=== PATIENT | female | born 1960 | race Caucasian/White ===

== ENCOUNTER → 2017-03-18 | Outpatient (CLI) | payer OTHER ==
--- NOTE | 2017-03-18 21:43 | US ---
EXAMINATION TYPE: US carotid duplex BILAT DATE OF EXAM: 03/18/2017 COMPARISON: NONE CLINICAL HISTORY: 57-year-old female I77.1 STENOSIS/BRUIT. Prior coronary artery stents and femoral a rtery stents; prior smoker TECHNIQUE: Carotid duplex ultrasound examination. In direct Doppler criteria was utilized. FINDINGS: Hernández scale images show moderate atherosclerotic changes of the bifurcation. RIGHT: Peak Systolic Velocity (PSV) cm/sec ----- Right CCA: 104.0 ----- Right ICA: 109.5 ----- Right ECA: 152.8 Prox ICA/CCA ratio: 1.1 RIGHT: End Diastole cm/sec ----- Right CCA: 24.8 ----- Right ICA: 18.9 ----- Right ECA: 0.0 LEFT: Peak Systolic Velocity (PSV) cm/sec ----- Left CCA: 65.5 ----- Left ICA: 102.9 ----- Left ECA: 356.9 ICA/CCA ratio: 1.6 LEFT: End Diastole cm/sec ----- Left CCA: 11.7 ----- Left ICA: 17.1 ----- Left ECA: 25.4 VERTEBRALS (direction of flow): Right Vertebral: Antegrade Left Vertebral: Antegrade Rhythm: Normal Incidental finding of left thyroid nodule is imaged. This is solid in the midpole measuring 9 x 9 x 6 mm. IMPRESSION: 1. Moderate atherosclerotic change at the bifurcations. No hemodynamically significant stenosis appre ciated in either internal carotid artery. 2. Narrowing at the proximal ECAs on both sides causing elevated velocities. 3. Incidental 9 mm solid nodule in the left lobe of the thyroid gland. Criteria for Assigning % of Stenosis / Diameter reduction (Estimation based on the indirect measurements of the internal carotid artery velocities (ICA PSV). 1. Normal (no stenosis)=ICA PSV < 125 cm/s: ratio < 2.0: ICA EDV<40 cm/s. 2. Less than 50% stenosis=ICA PSV < 125 cm/s: ratio < 2.0: ICA EDV<40 cm/s. 3. 50 to 69% stenosis=ICA PSV of 125 to 230 cm/s: ration 2.0 ? 4.0: ICA EDV 40-100 cm/s. 4. Greater than 70% stenosis to near occlusion= ICA PSV > 230 cm/s: ratio > 4.0: ICA EDV > 100 cm/s. 5. Near occlusion= ICA PSV velocities may be low or undetectable: variable ratio and ICA EDV. 6. Total occlusion=unable to detect flow.
== END | disposition home or self-care (01) ==
LOC: RADUSWWP 14:50
PROVIDERS: ATTEND Internal Medicine Cardiovascular Disease
DX: I70.90 Unspecified atherosclerosis (principal)
CPT/HCPCS: 93880

== ENCOUNTER → 2017-08-16 | Outpatient (CLI) | payer OTHER ==
[2017-08-16 15:51] LABS: HCT 42.3 % (34.0-46.0); HGB 13.4 gm/dL (11.4-16.0); MCHC 31.7 g/dL (31.0-37.0); MCV 85.1 fL (80.0-100.0); Mean Platelet Volume 7.2; Platelet Count 368 k/uL (150-450); RBC 4.97 m/uL (3.80-5.40); RDW 14.7 % (11.5-15.5); WBC 8.6 k/uL (3.8-10.6)
[2017-08-16 15:52] LABS: Appearance,Urine Clear (Clear); Bilirubin,Urine Negative (Negative); Blood,Urine Negative (Negative); Color,Urine Yellow; Glucose,Urine (UA) Trace (Negative); Ketones,Urine Negative (Negative); Leukocyte Esterase,Urine Negative (Negative); Nitrite,Urine Negative (Negative); Protein,Urine Trace (Negative); Specific Gravity,Urine 1.019 (1.001-1.035); Urobilinogen,Urine <2.0 mg/dL (<2.0)
[2017-08-16 16:01] LABS: ALT 22 U/L (9-52); AST 16 U/L (14-36); Albumin 3.7 g/dL (3.5-5.0); Alkaline Phosphatase 127 U/L (38-126); Anion Gap 13 mmol/L; Bilirubin, Delta 0.3 mg/dL (0.0-0.2); Bilirubin,Unconjugated 0.7 mg/dL (0.0-1.1); Blood Urea Nitrogen 17 mg/dL (7-17); Calcium 9.2 mg/dL (8.4-10.2); Carbon Dioxide 26 mmol/L (22-30); Chloride 102 mmol/L (98-107); Cholesterol 267 mg/dL (<200); Glucose 151 mg/dL (74-99); HDL Cholesterol 49 mg/dL (40-60); LDL Cholesterol,Calculated 156 mg/dL (0-99); Sodium 141 mmol/L (137-145); Total Protein 6.8 g/dL (6.3-8.2); Triglycerides 309 mg/dL (<150)
[2017-08-16 16:05] LABS: Prothrombin Time 9.9 sec (9.0-12.0)
== END | disposition home or self-care (01) ==
LOC: LABWHC1 15:32
PROVIDERS: ATTEND Internal Medicine Cardiovascular Disease
DX: I25.10 Atherosclerotic heart disease of native coronary artery without angina pectoris (principal)
CPT/HCPCS: 36415; 80053; 80061; 81003; 82248; 85027; 85610

== ENCOUNTER 2017-10-05 14:31 | Observation (INO) | payer OTHER ==
[2017-10-05 15:14] LABS: Basophils % (A) 0 %; Eosinophils # (A) 0.2 k/uL (0-0.7); Eosinophils % (A) 3 %; HGB 14.6 gm/dL (11.4-16.0); Lymphocytes # (A) 2.6 k/uL (1.0-4.8); Lymphocytes % (A) 30 %; MCH 27.9 pg (25.0-35.0); MCHC 33.3 g/dL (31.0-37.0); MCV 83.7 fL (80.0-100.0); Mean Platelet Volume 6.4; Monocytes # (A) 0.4 k/uL (0-1.0); Monocytes % (A) 4 %; Neutrophils # (A) 5.3 k/uL (1.3-7.7); Neutrophils % (A) 61 %; Platelet Count 346 k/uL (150-450); RBC 5.26 m/uL (3.80-5.40); RDW 14.8 % (11.5-15.5); WBC 8.7 k/uL (3.8-10.6)
[2017-10-05] MEDS ORDERED: NITROGLYCERIN SL TABS 0.4 MG TAB SUBLINGUAL STA (15:14)
[2017-10-05] MEDS ORDERED: ASPIRIN 81 MG PO STA (15:14)
[2017-10-05] MEDS ORDERED: NITROGLYCERIN OINT 1 INCH/GM PACKET TOPICAL STA (15:14)
--- NOTE | 2017-10-05 15:17 | ED ---
General Adult HPI - General Chief complaint: Chest Pain Stated complaint: Chest Pain Time Seen by Provider: 10/05/17 15:08 Source: patient, family, RN notes reviewed Mode of arrival: wheelchair Limitations: no limitations - History of Present Illness Initial comments: Patient is a pleasant 57-year-old female presenting to the emergency department chest discomfort. Symptoms started a couple of days ago. Symptoms usually are brought on by eating however one time it did not. Patient takes nitroglycerin with improvement of symptoms. Patient had 2 nitroglycerin today with improvement of symptoms however seems to be returning. Discomfort is currently 6/10. Patient does have associated dyspnea and sweating. No nausea. Symptoms are somewhat similar to previous heart attack. Discomfort does radiate up to the neck and left arm. - Related Data Home Medications Medication Instructions Recorded Confirmed Albuterol Sulfate [Ventolin HFA] 2 puff INHALATION RT-Q6H PRN 04/28/14 10/05/17 Atorvastatin [Lipitor] 40 mg PO HS 04/28/14 10/05/17 Clopidogrel [Plavix] 75 mg PO BID 04/28/14 10/05/17 Gabapentin [Neurontin] 600 mg PO TID 04/28/14 10/05/17 Insulin Glargine [Lantus] 76 unit SQ HS 04/28/14 10/05/17 Insulin Glulisine [Apidra] 36 - 40 unit SQ AC-TID 04/28/14 10/05/17 Lisinopril [Zestril] 5 mg PO DAILY 04/28/14 10/05/17 metFORMIN HCL [Glucophage] 500 mg PO BID 04/28/14 10/05/17 Cyclobenzaprine [Flexeril] 10 mg PO TID 06/04/14 10/05/17 Ipratropium-Albuterol Nebulize 3 ml INHALATION RT-TID PRN 06/04/14 10/05/17 [Duoneb 0.5 mg-3 mg/3 ml Soln] Aspirin EC [Ecotrin Low Dose] 81 mg PO DAILY 10/14/15 10/05/17 Cilostazol [Pletal] 100 mg PO BID 10/14/15 10/05/17 Ergocalciferol (Vitamin D2) 50,000 unit PO GRIGSBY 10/14/15 10/05/17 [Drisdol] Isosorbide Mononitrate ER [Imdur] 120 mg PO BID 10/14/15 10/05/17 Metoprolol Tartrate [Lopressor] 25 mg PO BID 10/14/15 10/05/17 Nitroglycerin Sl Tabs [Nitrostat] 0.4 mg SUBLINGUAL Q5M PRN 10/14/15 10/05/17 Ranolazine [Ranexa] 1,000 mg PO BID 10/14/15 10/05/17 Venlafaxine HCl [Effexor XR] 75 mg PO DAILY 10/14/15 10/05/17 lamoTRIgine [LaMICtal] 100 mg PO BID 10/14/15 10/05/17 traMADol HCL [Ultram] 50 mg PO Q4HR PRN 10/14/15 10/05/17 Aclidinium [place] [Tudorza 1 puff INHALATION RT-BID 10/05/17 10/05/17 Pressair] Dulera Unknown Dose 1 puff INHALATION RT-DAILY PRN 10/05/17 10/05/17 Furosemide [Lasix] 20 mg PO DAILY 10/05/17 10/05/17 Levothyroxine Sodium [Synthroid] 175 mcg PO DAILY 10/05/17 10/05/17 Allergies Allergy/AdvReac Type Severity Reaction Status Date / Time cephalexin monohydrate Allergy rash & Verified 10/05/17 16:17 [From Keflex] swelling doxycycline Allergy Rash/Hives Verified 10/05/17 16:17 orange Allergy Rash/Hives Verified 10/05/17 16:17 orange (food color) Allergy Rash/Hives Verified 10/05/17 16:17 orange flavor Allergy Rash/Hives Verified 10/05/17 16:17 orange juice [[place]] Allergy Rash/Hives Verified 10/05/17 16:17 Penicillins Allergy rash & Verified 10/05/17 16:17 swelling Sulfa (Sulfonamide Allergy rash & Verified 10/05/17 16:17 Antibiotics) swelling adhesive AdvReac blisters Verified 10/05/17 16:17 desvenlafaxine succinate AdvReac Altered Verified 10/05/17 16:17 [From Pristiq] Mental Status/aggression diazepam [From Valium] AdvReac Vomiting Verified 10/05/17 16:17 citris Allergy Rash/Hives Uncoded 10/05/17 14:38 Review of Systems ROS Statement: Those systems with pertinent positive or pertinent negative responses have been documented in the HPI. ROS Other: All systems not noted in ROS Statement are negative. Constitutional: Denies: fever Eyes: Denies: eye pain ENT: Denies: ear pain Respiratory: Denies: cough Cardiovascular: Reports: chest pain. Denies: palpitations Gastrointestinal: Denies: abdominal pain, nausea, vomiting Genitourinary: Denies: dysuria Musculoskeletal: Denies: back pain Skin: Denies: rash Neurological: Denies: weakness Past Medical History Past Medical History: Asthma, Coronary Artery Disease (CAD), Diabetes Mellitus, Hyperlipidemia, Hypertension, Myocardial Infarction ([place]), Thyroid Disorder Additional Past Medical History / Comment(s): back pain Last Myocardial Infarction Date:: 2012 History of Any Multi-Drug Resistant Organisms: None Reported Past Surgical History: Appendectomy, Heart Catheterization With Stent, Tonsillectomy, Tubal Ligation Additional Past Surgical History / Comment(s): "bypass from right leg to left" AORTIC BILIARY ANEURYSM REPAIR, Debo filter Past Anesthesia/Blood Transfusion Reactions: Postoperative Nausea & Vomiting ( PONV) Additional Past Anesthesia/Blood Transfusion Reaction / Comment(s): Pt states she takes a long time to wake up after general anesthesia Date of Last Stent Placement:: 2015 Past Psychological History: No Psychological Hx Reported Smoking Status: Former smoker Past Alcohol Use History: None Reported Past Drug Use History: None Reported - Past Family History Father Family Medical History: Unable to Obtain Additional Family Medical History / Comment(s): Pt does not know paternal father "s health hx. Mother Family Medical History: Coronary Artery Disease (CAD), Diabetes Mellitus Additional Family Medical History / Comment(s): Mother had CABG. She is alive and is 75yrs old. General Exam Limitations: no limitations General appearance: alert, in no apparent distress Head exam: Present: atraumatic Eye exam: Present: normal appearance, PERRL ENT exam: Present: normal oropharynx Neck exam: Present: normal inspection Respiratory exam: Present: normal lung sounds bilaterally. Absent: chest wall tenderness Cardiovascular Exam: Present: regular rate, normal rhythm Expanded Peripheral pulses: 2+: Radial (R), Radial (L), Posterior Tibialis (R), Posterior Tibialis (L) GI/Abdominal exam: Present: soft. Absent: tenderness Extremities exam: Present: normal inspection. Absent: pedal edema, calf tenderness Neurological exam: Present: alert Psychiatric exam: Present: normal affect, normal mood Skin exam: Present: normal color Course Vital Signs 10/05/17 14:33 Temperature 98.3 F Pulse Rate 78 Respiratory 20 Rate Blood Pressure 178/79 O2 Sat by Pulse 95 Oximetry EKG Findings - EKG Comments: EKG Findings:: Normal sinus rhythm 87. AL 158. QRS 82. QT 404. QTC 46. Normal axis. Normal QRS. No acute ST change. Medical Decision Making - Medical Decision Making Patient reevaluated and resting comfortably in bed. No change in symptoms. Patient has not yet received nitroglycerin. Patient and family updated on results and plan. Case was discussed in detail with Dr. Vasquez, who will admit for Dr. Adams - Lab Data Result diagrams: 10/05/17 15:07 10/05/17 15:07 Lab Results 10/05/17 10/05/17 10/05/17 Range/Units 14:53 14:53 15:07 WBC 8.7 (3.8-10.6) k/uL RBC 5.26 (3.80-5.40) m/uL Hgb 14.6 (11.4-16.0) gm/dL Hct 44.0 (34.0-46.0) % MCV 83.7 (80.0-100.0) fL MCH 27.9 (25.0-35.0) pg MCHC 33.3 (31.0-37.0) g/dL RDW 14.8 (11.5-15.5) % Plt Count 346 (150-450) k/uL Neutrophils % 61 % Lymphocytes % 30 % Monocytes % 4 % Eosinophils % 3 % Basophils % 0 % Neutrophils # 5.3 (1.3-7.7) k/uL Lymphocytes # 2.6 (1.0-4.8) k/uL Monocytes # 0.4 (0-1.0) k/uL Eosinophils # 0.2 (0-0.7) k/uL Basophils # 0.0 (0-0.2) k/uL PT 9.5 (9.0-12.0) sec INR 1.0 (<1.2) APTT 22.2 (22.0-30.0) sec Sodium (137-145) mmol/L Potassium (3.5-5.1) mmol/L Chloride (98-107) mmol/L Carbon Dioxide (22-30) mmol/L Anion Gap mmol/L BUN (7-17) mg/dL Creatinine (0.52-1.04) mg/dL Est GFR (CKD-EPI)AfAm (>60 ml/min/1.73 sqM) Est GFR (CKD-EPI)NonAf (>60 ml/min/1.73 sqM) Glucose (74-99) mg/dL Calcium (8.4-10.2) mg/dL Magnesium (1.6-2.3) mg/dL Total Bilirubin (0.2-1.3) mg/dL AST (14-36) U/L ALT (9-52) U/L Alkaline Phosphatase (38-126) U/L Total Creatine Kinase 155 H (30-135) U/L CK-MB (CK-2) 0.8 (0.0-2.4) ng/mL CK-MB (CK-2) Rel Index 0.5 Troponin I <0.012 (0.000-0.034) ng/mL Total Protein (6.3-8.2) g/dL Albumin (3.5-5.0) g/dL 10/05/17 Range/Units 15:07 WBC (3.8-10.6) k/uL RBC (3.80-5.40) m/uL Hgb (11.4-16.0) gm/dL Hct (34.0-46.0) % MCV (80.0-100.0) fL MCH (25.0-35.0) pg MCHC (31.0-37.0) g/dL RDW (11.5-15.5) % Plt Count (150-450) k/uL Neutrophils % % Lymphocytes % % Monocytes % % Eosinophils % % Basophils % % Neutrophils # (1.3-7.7) k/uL Lymphocytes # (1.0-4.8) k/uL Monocytes # (0-1.0) k/uL Eosinophils # (0-0.7) k/uL Basophils # (0-0.2) k/uL PT (9.0-12.0) sec INR (<1.2) APTT (22.0-30.0) sec Sodium 139 (137-145) mmol/L Potassium 4.4 (3.5-5.1) mmol/L Chloride 102 (98-107) mmol/L Carbon Dioxide 21 L (22-30) mmol/L Anion Gap 16 mmol/L BUN 15 (7-17) mg/dL Creatinine 0.76 (0.52-1.04) mg/dL Est GFR (CKD-EPI)AfAm >90 (>60 ml/min/1.73 sqM) Est GFR (CKD-EPI)NonAf 88 (>60 ml/min/1.73 sqM) Glucose 297 H (74-99) mg/dL Calcium 9.1 (8.4-10.2) mg/dL Magnesium 1.6 (1.6-2.3) mg/dL Total Bilirubin 1.0 (0.2-1.3) mg/dL AST 20 (14-36) U/L ALT 30 (9-52) U/L Alkaline Phosphatase 126 (38-126) U/L Total Creatine Kinase (30-135) U/L CK-MB (CK-2) (0.0-2.4) ng/mL CK-MB (CK-2) Rel Index Troponin I (0.000-0.034) ng/mL Total Protein 6.9 (6.3-8.2) g/dL Albumin 4.1 (3.5-5.0) g/dL - Radiology Data Radiology results: image reviewed (Chest x-ray shows no acute process) Disposition Clinical Impression: Chest pain Disposition: ADMITTED IP TO THIS HOSP Is patient prescribed a controlled substance at d/c from ED?: No Referrals: Katrina Adams DO [Primary Care Provider] - 1-2 days Decision Time: 16:29
[2017-10-05 15:25] LABS: ALT 30 U/L (9-52); AST 20 U/L (14-36); Albumin 4.1 g/dL (3.5-5.0); Alkaline Phosphatase 126 U/L (38-126); Anion Gap 16 mmol/L; Blood Urea Nitrogen 15 mg/dL (7-17); Calcium 9.1 mg/dL (8.4-10.2); Carbon Dioxide 21 mmol/L (22-30); Chloride 102 mmol/L (98-107); Glucose 297 mg/dL (74-99); Magnesium 1.6 mg/dL (1.6-2.3); Potassium 4.4 mmol/L (3.5-5.1); Sodium 139 mmol/L (137-145); Total Protein 6.9 g/dL (6.3-8.2)
[2017-10-05 15:27] LABS: Creatine Kinase 155 U/L (30-135)
--- NOTE | 2017-10-05 15:30 | XR ---
EXAMINATION TYPE: XR chest 2V DATE OF EXAM: 10/05/2017 COMPARISON: 10/14/2015 HISTORY: Chest pain. History of cardiac disease. TECHNIQUE: Frontal and lateral views of the chest are obtained. FINDINGS: There is no focal air space opacity, pleural effusion, or pneumothorax seen. The cardiac silhouette size is enlarged but similar to the prior. The osseous structures are intact. Mild multi level degenerative changes of the thoracic spine and acromio clavicular arthropathy are noted. IMPRESSION: No acute cardiopulmonary process.
[2017-10-05 15:37] LABS: Creatine Kinase MB 0.8 ng/mL (0.0-2.4)
[2017-10-05 15:41] LABS: Troponin I <0.012 ng/mL (0.000-0.034)
[2017-10-05 15:44] LABS: Partial Thromboplastin Time 22.2 sec (22.0-30.0); Prothrombin Time 9.5 sec (9.0-12.0)
[2017-10-05] MEDS ORDERED: NITROGLYCERIN SL TABS 0.4 MG TAB SUBLINGUAL PRN ×2 (16:29→20:15)
[2017-10-05] MEDS ORDERED: NITROGLYCERIN OINT 1 INCH/GM PACKET TOPICAL SCH (18:00)
[2017-10-05 19:43] VITALS: BMI 49.1
[2017-10-05] MEDS ORDERED: FORMOTEROL INHALATION PRN (20:15)
[2017-10-05] MEDS ORDERED: MOMETASONE INHALATION PRN (20:15)
[2017-10-05] MEDS ORDERED: ALBUTEROL INHALER 60 PUFF/8 GM INHALER INHALATION PRN (20:15)
[2017-10-05] MEDS ORDERED: IPRATROPIUM-ALBUTEROL 3 ML NEB INHALATION PRN (20:15)
[2017-10-05] MEDS ORDERED: traMADol 50 MG TAB PO PRN (20:15)
[2017-10-05] MEDS ORDERED: ATORVASTATIN 40 MG TAB PO SCH (21:00)
[2017-10-05] MEDS: ISOSORBIDE MONONITRATE ER 60 MG TAB.ER.24H PO SCH (21:14)
[2017-10-05] MEDS: CILOSTAZOL 100 MG TAB PO SCH (21:14)
[2017-10-05] MEDS: lamoTRIgine 100 MG TAB PO SCH (21:14)
[2017-10-05] MEDS: RANOLAZINE 500 MG TAB.ER.12H PO SCH (21:15)
[2017-10-05] MEDS: METOPROLOL TARTRATE 25 MG TAB PO SCH (21:15)
[2017-10-05] MEDS: CYCLOBENZAPRINE 10 MG TAB PO SCH (21:16)
[2017-10-05] MEDS: GABAPENTIN 300 MG CAP PO SCH (21:17)
[2017-10-05] MEDS ORDERED: ALBUTEROL NEBULIZED 2.5 MG/3 ML INHALATION PRN (21:20)
[2017-10-05] MEDS: INSULIN DETEMIR 100 UNIT/ML 10 ML VIAL SQ SCH (21:24)
[2017-10-05] MEDS: CLOPIDOGREL 75 MG TAB PO SCH (21:29)
[2017-10-05] MEDS: INSULIN ASPART 100 UNIT/ML 1 ML 10 ML VIAL SQ SCH (21:29)
[2017-10-05 21:33] LABS: Glucose,Whole Blood 200 mg/dL (75-99)
[2017-10-05 21:51] LABS: Creatine Kinase MB 1.7 ng/mL (0.0-2.4)
[2017-10-05 21:54] LABS: Troponin I 0.346 ng/mL (0.000-0.034)
[2017-10-05] MEDS ORDERED: HEPARIN SODIUM,PORCINE 5,000 UNIT/ML 1 ML VIAL IV ONE (21:59)
[2017-10-05] MEDS: HEPARIN SODIUM,PORCINE/D5W PMX 25,000 UNIT in DEXTROSE/WATER 1 500ML.BAG IV SCH (22:47)
[2017-10-06 03:04] LABS: Creatine Kinase MB 2.4 ng/mL (0.0-2.4)
[2017-10-06 03:05] LABS: Troponin I 0.507 ng/mL (0.000-0.034)
[2017-10-06 06:00] LABS: Glucose,Whole Blood 95 mg/dL (75-99)
[2017-10-06 06:06] LABS: Cholesterol 223 mg/dL (<200); HDL Cholesterol 37 mg/dL (40-60); LDL Cholesterol,Calculated 123 mg/dL (0-99); Triglycerides 314 mg/dL (<150)
[2017-10-06] MEDS: INSULIN ASPART 100 UNIT/ML 1 ML 10 ML VIAL SQ SCH ×4 (06:17→22:01)
[2017-10-06] MEDS: LEVOTHYROXINE 100 MCG TAB PO SCH (06:19)
[2017-10-06] MEDS: LEVOTHYROXINE 75 MCG TAB PO SCH (06:19)
[2017-10-06] MEDS ORDERED: NON-FORMULARY DRUG (Aclidinium Bromide [Tudorza Pressair] 1 PUFF) INHALATION SCH (08:00)
[2017-10-06] MEDS: RANOLAZINE 500 MG TAB.ER.12H PO SCH ×2 (08:01→22:00)
[2017-10-06] MEDS: VENLAFAXINE HCL ER 75 MG CAP PO SCH (08:02)
[2017-10-06] MEDS: METOPROLOL TARTRATE 25 MG TAB PO SCH ×2 (08:03→22:00)
[2017-10-06] MEDS: CLOPIDOGREL 75 MG TAB PO SCH (08:03)
[2017-10-06] MEDS: ASPIRIN 81 MG PO SCH (08:04)
[2017-10-06] MEDS: GABAPENTIN 300 MG CAP PO SCH ×3 (08:05→22:00)
[2017-10-06] MEDS: CILOSTAZOL 100 MG TAB PO SCH ×2 (08:05→22:00)
[2017-10-06] MEDS: FUROSEMIDE 20 MG TAB PO SCH (08:05)
[2017-10-06] MEDS: lamoTRIgine 100 MG TAB PO SCH ×2 (08:06→22:00)
[2017-10-06] MEDS: CYCLOBENZAPRINE 10 MG TAB PO SCH ×3 (08:06→22:00)
[2017-10-06] MEDS: ISOSORBIDE MONONITRATE ER 60 MG TAB.ER.24H PO SCH ×2 (08:06→22:00)
[2017-10-06] MEDS: LISINOPRIL 5 MG TAB PO SCH (08:07)
[2017-10-06] MEDS ORDERED: ASPIRIN 325 MG TAB PO SCH (09:00)
[2017-10-06 11:39] LABS: Glucose,Whole Blood 205 mg/dL (75-99)
[2017-10-06] MEDS ORDERED: ERGOCALCIFEROL 50,000 UNIT CAP PO SCH (12:00)
[2017-10-06] MEDS: HEPARIN SODIUM,PORCINE 5,000 UNIT/ML 1 ML VIAL IV PRN ×2 (14:04→22:01)
[2017-10-06] MEDS: HEPARIN SODIUM,PORCINE/D5W PMX 25,000 UNIT in DEXTROSE/WATER 1 500ML.BAG IV SCH (14:21)
--- NOTE | 2017-10-06 15:50 | P.HPIM ---
History of Present Illness H&P Date: 10/06/17 Chief Complaint: Chest pain This is a 57-year-old female with past medical history noted below significant for coronary artery disease with history of stent placement who presented to the emergency room with chest pain. Patient said that she has been having pain that she describes as pressure sensation in the middle of her chest mostly when she eats. Her pain is been on-and-off for several weeks but yesterday got significantly worse. She also noted radiation to her neck and shoulder yesterday which made her more concerned. She denies significant shortness of breath or nausea. She decided to come to the emergency room for further evaluation. Twelve-lead EKG in the emergency room showed no acute ischemic changes. Patient was noted to have an elevated troponin that peaked to 0.5. She was admitted to the hospital on IV heparin drip. She was seen and evaluated by cardiology. Review of Systems Review of system: 14 points review of systems were obtained and were negative except to what were mentioned in the HPI. Past Medical History Past Medical History: Asthma, Coronary Artery Disease (CAD), COPD, Diabetes Mellitus, Hyperlipidemia, Hypertension, Myocardial Infarction ([place]), Thyroid Disorder Additional Past Medical History / Comment(s): back pain Last Myocardial Infarction Date:: 2012 History of Any Multi-Drug Resistant Organisms: None Reported Past Surgical History: Appendectomy, Bariatric Surgery, Heart Catheterization With Stent, Tonsillectomy, Tubal Ligation Additional Past Surgical History / Comment(s): "bypass from right leg to left" x3, AORTIC BILIARY ANEURYSM REPAIR, Debo filter, 4 hernia repairs, gastric bypass sleeve, 8 heart stents total, 3 leg stents, 1 stent in aorta. Past Anesthesia/Blood Transfusion Reactions: Postoperative Nausea & Vomiting ( PONV) Additional Past Anesthesia/Blood Transfusion Reaction / Comment(s): Pt states she takes a long time to wake up after general anesthesia Date of Last Stent Placement:: july 19 2017 Past Psychological History: No Psychological Hx Reported Additional Psychological History / Comment(s): Pt is . She lives alone in her own home and lives around the corner in his own place for financial reasons. Pt is independent. She uses a cane if she needs to walk far. She drives a car. Smoking Status: Former smoker Past Alcohol Use History: None Reported Past Drug Use History: None Reported - Past Family History Father Family Medical History: Unable to Obtain Additional Family Medical History / Comment(s): Pt does not know paternal father "s health hx. Mother Family Medical History: Coronary Artery Disease (CAD), Diabetes Mellitus Additional Family Medical History / Comment(s): Mother had CABG. She is alive and is 75yrs old. Medications and Allergies Home Medications Medication Instructions Recorded Confirmed Type Albuterol Sulfate [Ventolin HFA] 2 puff INHALATION RT-Q6H PRN 04/28/14 10/05/17 History Atorvastatin [Lipitor] 40 mg PO HS 04/28/14 10/05/17 History Clopidogrel [Plavix] 75 mg PO BID 04/28/14 10/05/17 History Gabapentin [Neurontin] 600 mg PO TID 04/28/14 10/05/17 History Insulin Glargine [Lantus] 76 unit SQ HS 04/28/14 10/05/17 History Insulin Glulisine [Apidra] 36 - 40 unit SQ AC-TID 04/28/14 10/05/17 History Lisinopril [Zestril] 5 mg PO DAILY 04/28/14 10/05/17 History metFORMIN HCL [Glucophage] 500 mg PO BID 04/28/14 10/05/17 History Cyclobenzaprine [Flexeril] 10 mg PO TID 06/04/14 10/05/17 History Ipratropium-Albuterol Nebulize 3 ml INHALATION RT-TID PRN 06/04/14 10/05/17 History [Duoneb 0.5 mg-3 mg/3 ml Soln] Aspirin EC [Ecotrin Low Dose] 81 mg PO DAILY 10/14/15 10/05/17 History Cilostazol [Pletal] 100 mg PO BID 10/14/15 10/05/17 History Ergocalciferol (Vitamin D2) 50,000 unit PO GRIGSBY 10/14/15 10/05/17 History [Drisdol] Isosorbide Mononitrate ER [Imdur] 120 mg PO BID 10/14/15 10/05/17 History Metoprolol Tartrate [Lopressor] 25 mg PO BID 10/14/15 10/05/17 History Nitroglycerin Sl Tabs [Nitrostat] 0.4 mg SUBLINGUAL Q5M PRN 10/14/15 10/05/17 History Ranolazine [Ranexa] 1,000 mg PO BID 10/14/15 10/05/17 History Venlafaxine HCl [Effexor XR] 75 mg PO DAILY 10/14/15 10/05/17 History lamoTRIgine [LaMICtal] 100 mg PO BID 10/14/15 10/05/17 History traMADol HCL [Ultram] 50 mg PO Q4HR PRN 10/14/15 10/05/17 History Aclidinium [place] [[place]ud[place]za 1 puff INHALATION RT-BID 10/05/17 10/05/17 History Pressair] Dulera Unknown Dose 1 puff INHALATION RT-DAILY PRN 10/05/17 10/05/17 History Furosemide [Lasix] 20 mg PO DAILY 10/05/17 10/05/17 History Levothyroxine Sodium [Synthroid] 175 mcg PO DAILY 10/05/17 10/05/17 History Allergies Allergy/AdvReac Type Severity Reaction Status Date / Time cephalexin monohydrate Allergy rash & Verified 10/05/17 16:17 [From Keflex] swelling doxycycline Allergy Rash/Hives Verified 10/05/17 16:17 orange Allergy Rash/Hives Verified 10/05/17 16:17 orange (food color) Allergy Rash/Hives Verified 10/05/17 16:17 orange flavor Allergy Rash/Hives Verified 10/05/17 16:17 orange juice [[place]] Allergy Rash/Hives Verified 10/05/17 16:17 Penicillins Allergy rash & Verified 10/05/17 16:17 swelling Sulfa (Sulfonamide Allergy rash & Verified 10/05/17 16:17 Antibiotics) swelling adhesive AdvReac blisters Verified 10/05/17 16:17 desvenlafaxine succinate AdvReac Altered Verified 10/05/17 16:17 [From Pristiq] Mental Status/aggression diazepam [From Valium] AdvReac Vomiting Verified 10/05/17 16:17 citris Allergy Rash/Hives Uncoded 10/05/17 14:38 Physical Exam Vitals: Vital Signs Temp Pulse Pulse Resp BP BP Pulse Ox 10/06/17 15:20 77 18 10/06/17 15:19 97.7 F 77 18 112/59 95 10/06/17 11:18 82 20 10/06/17 11:16 97.5 F L 82 20 116/58 95 10/06/17 08:00 97.5 F L 81 18 132/71 95 10/06/17 03:54 77 16 10/06/17 03:53 97.4 F L 77 16 127/70 96 10/05/17 23:22 75 18 10/05/17 23:20 97.3 F L 75 18 124/76 95 10/05/17 20:00 97.3 F L 89 18 134/65 98 10/05/17 19:15 98.7 F 81 16 150/78 98 10/05/17 17:56 97.3 F L 89 18 134/65 98 10/05/17 17:30 87 16 148/55 97 10/05/17 16:57 91 18 153/69 97 Intake and Output 10/06/17 10/06/17 10/06/17 06:59 14:59 22:59 Intake Total 908.235 6856.424 Balance 020.763 4604.424 Intake: Intake, IV Titration 320.576 279.424 Amount Heparin Sodium,Porcine/ 320.576 279.424 D5w Pmx 25,000 unit In Dextrose/Water 1 500ml. bag @ 20 mls/hr IV .Q[facility]H [facility] Rx#:[id number] Oral 800 Other: Voiding Method Toilet Toilet Toilet # Voids 1 Weight 121.9 kg General: The patient is awake and alert, in no distress Eye: there is normal conjunctiva bilaterally. Neck: The neck is supple, there is no JVD. Cardiovascular: Normal S1-S2, no S3-S4, no murmurs. Respiratory: Lungs clear to auscultation bilaterally Gastrointestinal: Abdomen is obese but soft, nontender Musculoskeletal: There is no pedal edema. Neurological:. Speech is normal. Skin: Skin is warm and dry Results CBC & Chem 7: 10/05/17 15:07 10/05/17 15:07 Labs: Abnormal Lab Results - Last 24 Hours (Table) 10/05/17 10/05/17 10/06/17 Range/Units 20:48 21:23 02:01 POC Glucose (mg/dL) 200 H (75-99) mg/dL Total Creatine Kinase 139 H (30-135) U/L Troponin I 0.346 H* 0.507 H* (0.000-0.034) ng/mL Triglycerides (<150) mg/dL Cholesterol (<200) mg/dL LDL Cholesterol, Calc (0-99) mg/dL HDL Cholesterol (40-60) mg/dL 10/06/17 10/06/17 10/06/17 Range/Units 05:28 09:56 11:37 POC Glucose (mg/dL) 205 H (75-99) mg/dL Total Creatine Kinase (30-135) U/L Troponin I 0.257 H* (0.000-0.034) ng/mL Triglycerides 314 H (<150) mg/dL Cholesterol 223 H (<200) mg/dL LDL Cholesterol, Calc 123 H (0-99) mg/dL HDL Cholesterol 37 L (40-60) mg/dL Thrombosis Risk Factor Assmnt - Choose All That Apply Any of the Below Risk Factors Present?: Yes Each Factor Represents 1 point: Abnormal pulmonary function (COPD), Age 41-60 years Other Risk Factors: No Other congenital or acquired thrombophilia - If yes, enter type in comment: No Thrombosis Risk Factor Assessment Total Risk Factor Score: 2 Thrombosis Risk Factor Assessment Level: Low Risk Assessment and Plan Assessment: 1. Non-ST elevation [place], patient was seen and evaluated by cardiology. Continue IV heparin drip. Medical management for now. Awaiting further recommendations by cardiology 2. Essential hypertension: Blood pressure well-controlled 3. Coronary artery disease with prior stent placement most recently in July 2012. Following in [place] at [facility] 4. Mixed hyperlipidemia cholesterol level not at goal. Lipitor dose was increased to 80 mg at bedtime. 5. Morbid obesity
[2017-10-06 16:36] LABS: Glucose,Whole Blood 162 mg/dL (75-99)
--- NOTE | 2017-10-06 17:50 | CONS ---
CONSULTATION Yasmine Flores is an obese lady with type 2 diabetes mellitus, who has history of previous multivessel PCI. The details of the PCI are not available. She had 1 stenting of LAD performed here in 2016 and since then she has been following up with Dr. Verdugo at [facility]. She came into the hospital yesterday with complaints of having some discomfort in the chest that are going on for the last couple of days. She thought whenever she had a heavy meal she was feeling discomfort but nitroglycerin gave some improvement. After arrival she has no further symptoms. She is feeling comfortable, resting without symptoms. When she came into the hospital she complained of 6/10 chest pain, but that was resolved immediately after nitroglycerin. She is asymptomatic at this time. PAST MEDICAL HISTORY: 1. CAD with multivessel stenting. 2. History of vascular surgery of her lower extremities. 3. Hypertension, hyperlipidemia, type 2 diabetes and thyroid disorder. 4. LABORATORY DATA: Suggests that her troponin was 0.5 when she came in and 0.2 at this time, which is a repeat value. She also has a significantly elevated LDL cholesterol and has not been taking her statin medications. This patient apparently had a previous aorto bi-iliac and fem-fem surgery as well, the details of which are not available. Her home medications include aspirin, atorvastatin, Pletal, Plavix, insulin, levothyroxine, lisinopril, tramadol. ALLERGIES: She is allergic to PENICILLIN AND SULFA. EXAMINATION: Blood pressure is 118/70, pulse rate 78 per minute and regular. HEENT: Unremarkable. Fundus was not examined by me. NECK: Supple. There is no JVD. I do not hear a carotid bruit. Heart exam reveals S1, S2 heard normally with a short systolic murmur. Lungs revealed decent air entry. Abdomen is soft, nontender. Lower extremities reveal diminished pulses. Central nervous system is normal. EKG revealed sinus mechanism with minor nonspecific ST-T changes. IMPRESSION: 1. Non ST elevation CT in a patient with multivessel PCI without any chest pain at this time. 2. History of multivessel PCI, details unclear. 3. Diabetes mellitus type 2. 4. Hypertension. 5. Hyperlipidemia. 6. Obesity. RECOMMENDATIONS: I am advising cardiac catheterization but patient is at this time reluctant to have a cardiac cath performed. She wishes to go to [facility] for her procedures and wishes to see Dr. Verdugo as an outpatient for procedures. I explained to her that if she has any further chest discomfort while she is here, we would recommend cardiac cath and if necessary transfer her but if she has no further chest discomfort, if she remains stable, I will discharge her and have her see Dr. Leon Verdugo at [facility] early next week. Advised to let us know if she has symptoms. We will continue IV heparin for now and resume almost all her medications including atorvastatin which I will increase to 80 mg daily. Thank you very much for the consult. LYNSEY / MAUREEN: [id number] /
[2017-10-06 20:48] VITALS: RESP 16
[2017-10-06] MEDS ORDERED: ATORVASTATIN 80 MG TAB PO SCH (21:00)
[2017-10-06 21:13] LABS: Glucose,Whole Blood 239 mg/dL (75-99)
[2017-10-06] MEDS: INSULIN DETEMIR 100 UNIT/ML 10 ML VIAL SQ SCH (22:00)
[2017-10-07 03:43] LABS: Basophils % (A) 0 %; Eosinophils # (A) 0.3 k/uL (0-0.7); Eosinophils % (A) 5 %; HCT 38.9 % (34.0-46.0); HGB 12.4 gm/dL (11.4-16.0); Lymphocytes # (A) 3.3 k/uL (1.0-4.8); Lymphocytes % (A) 46 %; MCH 27.2 pg (25.0-35.0); MCHC 31.8 g/dL (31.0-37.0); MCV 85.3 fL (80.0-100.0); Mean Platelet Volume 6.6; Monocytes # (A) 0.3 k/uL (0-1.0); Monocytes % (A) 4 %; Neutrophils # (A) 3.1 k/uL (1.3-7.7); Neutrophils % (A) 44 %; Platelet Count 288 k/uL (150-450); RBC 4.56 m/uL (3.80-5.40); RDW 15.1 % (11.5-15.5); WBC 7.1 k/uL (3.8-10.6)
[2017-10-07] MEDS: HEPARIN SODIUM,PORCINE/D5W PMX 25,000 UNIT in DEXTROSE/WATER 1 500ML.BAG IV SCH (03:58)
[2017-10-07 04:17] LABS: Anion Gap 13 mmol/L; Blood Urea Nitrogen 15 mg/dL (7-17); Carbon Dioxide 22 mmol/L (22-30); Chloride 106 mmol/L (98-107); Glucose 157 mg/dL (74-99); Potassium 4.2 mmol/L (3.5-5.1); Sodium 141 mmol/L (137-145)
[2017-10-07 06:14] LABS: Glucose,Whole Blood 177 mg/dL (75-99)
[2017-10-07] MEDS ORDERED: INSULIN DETEMIR 100 UNIT/ML 10 ML VIAL SQ SCH (06:17)
[2017-10-07] MEDS: LEVOTHYROXINE 75 MCG TAB PO SCH (06:28)
[2017-10-07] MEDS: LEVOTHYROXINE 100 MCG TAB PO SCH (06:28)
[2017-10-07] MEDS: INSULIN ASPART 100 UNIT/ML 1 ML 10 ML VIAL SQ SCH ×2 (06:31→12:03)
[2017-10-07] MEDS ORDERED: CLOPIDOGREL 75 MG TAB PO SCH (09:00)
[2017-10-07] MEDS: GABAPENTIN 300 MG CAP PO SCH (09:46)
[2017-10-07] MEDS: ISOSORBIDE MONONITRATE ER 60 MG TAB.ER.24H PO SCH (09:46)
[2017-10-07] MEDS: FUROSEMIDE 20 MG TAB PO SCH (09:46)
[2017-10-07] MEDS: ASPIRIN 81 MG PO SCH (09:46)
[2017-10-07] MEDS: CILOSTAZOL 100 MG TAB PO SCH (09:48)
[2017-10-07] MEDS: CYCLOBENZAPRINE 10 MG TAB PO SCH (09:48)
[2017-10-07] MEDS: lamoTRIgine 100 MG TAB PO SCH (09:49)
[2017-10-07] MEDS: RANOLAZINE 500 MG TAB.ER.12H PO SCH (09:50)
[2017-10-07] MEDS: METOPROLOL TARTRATE 25 MG TAB PO SCH (09:51)
[2017-10-07] MEDS: VENLAFAXINE HCL ER 75 MG CAP PO SCH (09:51)
[2017-10-07 11:38] VITALS: BP 130/65; PULSE 78; TEMP 97
[2017-10-07] MEDS: LISINOPRIL 5 MG TAB PO SCH (11:39)
[2017-10-07 11:51] LABS: Glucose,Whole Blood 199 mg/dL (75-99)
--- NOTE | 2017-10-07 14:57 | P.DS ---
Providers Date of admission: 10/05/17 16:29 Expected date of discharge: 10/07/17 Attending physician: Chayo Grider Consults: 10/05/17 16:29 Consult Physician Urgent Consulting Provider: Alyssia Hawthorne Consult Reason/Comments: chest pain Do you want consulting provider notified?: Yes Primary care physician: [facility] Course: 1. Non-ST elevation SD, patient was seen and evaluated by cardiology. Treated medically with IV heparin. No further chest pain. 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 Continue optimal medical management. 2. Essential hypertension: Blood pressure well-controlled 3. Coronary artery disease with prior stent placement most recently in July 2012. Following in [place] at [facility] 4. Mixed hyperlipidemia cholesterol level not at goal. Lipitor dose was increased to 80 mg at bedtime. 5. Morbid obesity Plan - Discharge Summary Discharge Rx Participant: No New Discharge Prescriptions: New Atorvastatin [Lipitor] 80 mg PO HS tab Continue Insulin Glulisine [Apidra] 36 - 40 unit SQ AC-TID Insulin Glargine [Lantus] 76 unit SQ HS Lisinopril [Zestril] 5 mg PO DAILY Albuterol Sulfate [Ventolin HFA] 2 puff INHALATION RT-Q6H PRN PRN Reason: Shortness Of Breath metFORMIN HCL [Glucophage] 500 mg PO BID Gabapentin [Neurontin] 600 mg PO TID Cyclobenzaprine [Flexeril] 10 mg PO TID Ipratropium-Albuterol Nebulize [Duoneb 0.5 mg-3 mg/3 ml Soln] 3 ml INHALATION RT-TID PRN PRN Reason: shortness of breath or wheeze Aspirin EC [Ecotrin Low Dose] 81 mg PO DAILY Cilostazol [Pletal] 100 mg PO BID lamoTRIgine [LaMICtal] 100 mg PO BID Metoprolol Tartrate [Lopressor] 25 mg PO BID Ranolazine [Ranexa] 1,000 mg PO BID Venlafaxine HCl [Effexor XR] 75 mg PO DAILY Ergocalciferol (Vitamin D2) [Drisdol] 50,000 unit PO GRIGSBY Nitroglycerin Sl Tabs [Nitrostat] 0.4 mg SUBLINGUAL Q5M PRN PRN Reason: Chest Pain traMADol HCL [Ultram] 50 mg PO Q4HR PRN PRN Reason: Pain Isosorbide Mononitrate ER [Imdur] 120 mg PO BID Levothyroxine Sodium [Synthroid] 175 mcg PO DAILY Furosemide [Lasix] 20 mg PO DAILY Aclidinium [place] [Tudorza Pressair] 1 puff INHALATION RT-BID Dulera Unknown Dose 1 puff INHALATION RT-DAILY PRN PRN Reason: Shortness Of Breath Changed Clopidogrel [Plavix] 75 mg PO DAILY #0 Discontinued Atorvastatin [Lipitor] 40 mg PO HS Discharge Medication List Albuterol Sulfate [Ventolin HFA] 2 puff INHALATION RT-Q6H PRN 04/28/14 [History] Gabapentin [Neurontin] 600 mg PO TID 04/28/14 [History] Insulin Glargine [Lantus] 76 unit SQ HS 04/28/14 [History] Insulin Glulisine [Apidra] 36 - 40 unit SQ AC-TID 04/28/14 [History] Lisinopril [Zestril] 5 mg PO DAILY 04/28/14 [History] metFORMIN HCL [Glucophage] 500 mg PO BID 04/28/14 [History] Cyclobenzaprine [Flexeril] 10 mg PO TID 06/04/14 [History] Ipratropium-Albuterol Nebulize [Duoneb 0.5 mg-3 mg/3 ml Soln] 3 ml INHALATION RT -TID PRN 06/04/14 [History] Aspirin EC [Ecotrin Low Dose] 81 mg PO DAILY 10/14/15 [History] Cilostazol [Pletal] 100 mg PO BID 10/14/15 [History] Ergocalciferol (Vitamin D2) [Drisdol] 50,000 unit PO GRIGSBY 10/14/15 [History] Isosorbide Mononitrate ER [Imdur] 120 mg PO BID 10/14/15 [History] Metoprolol Tartrate [Lopressor] 25 mg PO BID 10/14/15 [History] Nitroglycerin Sl Tabs [Nitrostat] 0.4 mg SUBLINGUAL Q5M PRN 10/14/15 [History] Ranolazine [Ranexa] 1,000 mg PO BID 10/14/15 [History] Venlafaxine HCl [Effexor XR] 75 mg PO DAILY 10/14/15 [History] lamoTRIgine [LaMICtal] 100 mg PO BID 10/14/15 [History] traMADol HCL [Ultram] 50 mg PO Q4HR PRN 10/14/15 [History] Aclidinium [place] [Tudorza Pressair] 1 puff INHALATION RT-BID 10/05/17 [History ] Dulera Unknown Dose 1 puff INHALATION RT-DAILY PRN 10/05/17 [History] Furosemide [Lasix] 20 mg PO DAILY 10/05/17 [History] Levothyroxine Sodium [Synthroid] 175 mcg PO DAILY 10/05/17 [History] Atorvastatin [Lipitor] 80 mg PO HS tab 10/07/17 [Rx] Clopidogrel [Plavix] 75 mg PO DAILY #0 10/07/17 [Rx] Follow up Appointment(s)/Referral(s): Katrina Adams DO [Primary Care Provider] - 3 Days Discharge Disposition: HOME SELF-CARE
--- NOTE | 2017-10-07 16:09 | PN ---
PROGRESS NOTE This is a lady presented to the hospital with episode of chest pain and has troponin elevation. I advised cardiac catheterization, but she was reluctant to have the procedure performed. She has had previous procedures by Dr. Verdugo at [facility]. I am recommending that she can go to [facility], but since she did not have any further chest pain, she wishes to go home and then will see him in the office tomorrow. With this understanding, I am recommending that she can be discharged. I reviewed all her medications. She will continue the same and not do any strenuous activity. We will discontinue IV heparin, increase activity. If she has no further pain, she can be discharged today. Vital signs stable. There is no JVD. S1-S2 heard normally. Heart sounds are distant. Lungs are clear. Abdomen is soft. Lower extremities reveal diminished pulses. Central nervous system is grossly within normal limits. MMODL / IJN: [id number] /
[2017-10-08 14:52] LABS: Hemoglobin A1C 8.1 % (4.0-6.0)
== END 2017-10-07 16:00 | disposition home or self-care (01) ==
LOC: EC 14:31 → 6SEL 16:29
PROVIDERS: ADMIT Internal Medicine; ATTEND Internal Medicine
DX: I21.4 Non-ST elevation (NSTEMI) myocardial infarction (principal); I25.10 Atherosclerotic heart disease of native coronary artery without angina pectoris; I10 Essential (primary) hypertension; E11.9 Type 2 diabetes mellitus without complications; E78.2 Mixed hyperlipidemia; E07.9 Disorder of thyroid, unspecified; E66.01 Morbid (severe) obesity due to excess calories; Z68.43 Body mass index [BMI] 50.0-59.9, adult; Z95.5 Presence of coronary angioplasty implant and graft; I25.2 Old myocardial infarction; Z87.891 Personal history of nicotine dependence; Z95.828 Presence of other vascular implants and grafts; Z79.02 Long term (current) use of antithrombotics/antiplatelets; Z79.4 Long term (current) use of insulin; Z79.82 Long term (current) use of aspirin; Z79.899 Other long term (current) drug therapy; Z88.1 Allergy status to other antibiotic agents; Z88.0 Allergy status to penicillin; Z88.2 Allergy status to sulfonamides; Z88.8 Allergy status to other drugs, medicaments and biological substances; Z91.018 Allergy to other foods; Z91.048 Other nonmedicinal substance allergy status; J44.9 Chronic obstructive pulmonary disease, unspecified; Z83.3 Family history of diabetes mellitus; Z82.49 Family history of ischemic heart disease and other diseases of the circulatory system
CPT/HCPCS: 36415; 71046; 80048; 80053; 80061; 82550; 82553; 83036; 83735; 84484; 85025; 85610; 85730; 93005; 96365; 96366; 96376; 99285

== ENCOUNTER 2020-04-23 10:42 | Emergency (ER) | payer OTHER ==
[2020-04-23 10:57] VITALS: RESP 18
[2020-04-23] MEDS ORDERED: SODIUM CHLORIDE 0.9% 1,000 ML IV STA (11:17)
[2020-04-23 11:43] LABS: Basophils # (A) 0.1 k/uL (0-0.2); Basophils % (A) 1 %; Eosinophils # (A) 0.3 k/uL (0-0.7); Eosinophils % (A) 3 %; HCT 42.2 % (34.0-46.0); HGB 14.2 gm/dL (11.4-16.0); Lymphocytes % (A) 21 %; MCH 28.7 pg (25.0-35.0); MCHC 33.8 g/dL (31.0-37.0); MCV 84.9 fL (80.0-100.0); Mean Platelet Volume 7.1; Monocytes # (A) 0.5 k/uL (0-1.0); Monocytes % (A) 6 %; Neutrophils # (A) 6.4 k/uL (1.3-7.7); Neutrophils % (A) 68 %; Platelet Count 307 k/uL (150-450); RBC 4.97 m/uL (3.80-5.40); WBC 9.4 k/uL (3.8-10.6)
--- NOTE | 2020-04-23 11:53 | XR ---
EXAMINATION TYPE: XR knee complete RT DATE OF EXAM: 04/23/2020 COMPARISON: None HISTORY: Pain TECHNIQUE: Three-view right knee FINDINGS: Mild narrowing of the medial lateral compartment joint space is present. Tibial plateau spu rring is present medially and laterally. Medial femoral condylar spurring is present. No joint effusi on is evident. Posterior patellar spurs are noted. IMPRESSION: 1. Mild to moderate degenerative changes right knee. 2. No acute osseous abnormality. 3. Follow-up exams can be performed 7-10 days from acute trauma for continued pain.
[2020-04-23 11:54] LABS: Albumin 3.7 g/dL (3.5-5.0); Potassium 4.1 mmol/L (3.5-5.1); Total Bilirubin 1.6 mg/dL (0.2-1.3); Total Protein 6.8 g/dL (6.3-8.2)
--- NOTE | 2020-04-23 12:32 | ED ---
General Adult HPI - General Chief complaint: Urogenital Stated complaint: Female UG/R Knee Pain Time Seen by Provider: 04/23/20 10:58 Source: patient, family, RN notes reviewed Mode of arrival: wheelchair Limitations: no limitations - History of Present Illness Initial comments: This is a 60-year-old female presents emergency Department chief complaint of lower abdominal discomfort. Patient states started last week and states that she follow-up with her PCP Saturday and which she was scheduled for ultrasound. Patient states that she developed urinary frequency dysuria and lower abdominal pain. Patient states that 3 towards her flank bilaterally history kidney stones. She states there is no severe flank pain. Patient denies known fevers or chills. No sick in the room diarrhea constipation. Patient also states that she injured her right knee when she tripped over a box comment on the stairs. Patient states that she has pain when she ambulates states he just feels very sore but she is able to bear weight. No paresthesias. - Related Data Home Medications Medication Instructions Recorded Confirmed Albuterol Sulfate [Ventolin HFA] 2 puff INHALATION RT-Q6H PRN 04/28/14 04/23/20 lisinopriL [Zestril] 5 mg PO DAILY 04/28/14 04/23/20 metFORMIN HCL [Glucophage] 500 mg PO BID 04/28/14 04/23/20 Isosorbide Mononitrate ER [Imdur] 60 mg PO BID 10/14/15 04/23/20 Nitroglycerin Sl Tabs [Nitrostat] 0.4 mg SUBLINGUAL Q5M PRN 10/14/15 04/23/20 Ranolazine [Ranexa] 1,000 mg PO BID 10/14/15 04/23/20 cilostazoL [Pletal] 100 mg PO BID 10/14/15 04/23/20 lamoTRIgine [LaMICtal] 100 mg PO BID 10/14/15 04/23/20 traMADol HCL [Ultram] 50 mg PO Q4HR PRN 10/14/15 04/23/20 Levothyroxine Sodium [Synthroid] 175 mcg PO DAILY 10/05/17 04/23/20 Cyclobenzaprine [Flexeril] 5 mg PO BID PRN 04/23/20 04/23/20 Dulaglutide [Trulicity] 1.5 mg SQ GRIGSBY 04/23/20 04/23/20 Ibuprofen [Motrin Ib] 600 mg PO Q8H PRN 04/23/20 04/23/20 Insulin Glargine,Hum.rec.anlog 64 unit SQ HS 04/23/20 04/23/20 [Lantus Solostar] Insulin Glulisine [Apidra Solostar] 15 unit SQ AC-TID 04/23/20 04/23/20 Metoclopramide HCl [Reglan] 10 mg PO BID PRN 04/23/20 04/23/20 Metoprolol Tartrate [Lopressor] 50 mg PO BID 04/23/20 04/23/20 Venlafaxine HCl ER [Effexor Xr] 150 mg PO DAILY 04/23/20 04/23/20 Previous Rx's Medication Instructions Recorded Atorvastatin [Lipitor] 80 mg PO HS tab 10/07/17 Clopidogrel [Plavix] 75 mg PO DAILY #0 10/07/17 Tamsulosin [Flomax] 0.4 mg PO DAILY #7 cap 04/23/20 Allergies Allergy/AdvReac Type Severity Reaction Status Date / Time cephalexin monohydrate Allergy rash & Verified 04/23/20 11:54 [From Keflex] swelling doxycycline Allergy Rash/Hives Verified 04/23/20 11:54 orange Allergy Rash/Hives Verified 04/23/20 11:54 orange (food color) Allergy Rash/Hives Verified 04/23/20 11:54 orange flavor Allergy Rash/Hives Verified 04/23/20 11:54 orange juice [Page] Allergy Rash/Hives Verified 04/23/20 11:54 Penicillins Allergy rash & Verified 04/23/20 11:54 swelling Sulfa (Sulfonamide Allergy rash & Verified 04/23/20 11:54 Antibiotics) swelling adhesive AdvReac blisters Verified 04/23/20 11:54 desvenlafaxine succinate AdvReac Altered Verified 04/23/20 11:54 [From Pristiq] Mental Status/aggression diazepam [From Valium] AdvReac Vomiting Verified 04/23/20 11:54 citris Allergy Rash/Hives Uncoded 04/23/20 10:55 Review of Systems ROS Statement: Those systems with pertinent positive or pertinent negative responses have been documented in the HPI. ROS Other: All systems not noted in ROS Statement are negative. Past Medical History Past Medical History: Asthma, Coronary Artery Disease (CAD), COPD, Diabetes Mellitus, Hyperlipidemia, Hypertension, Myocardial Infarction (OR), Thyroid Disorder Additional Past Medical History / Comment(s): back pain Last Myocardial Infarction Date:: 2012 History of Any Multi-Drug Resistant Organisms: None Reported Past Surgical History: Appendectomy, Bariatric Surgery, Heart Catheterization With Stent, Tonsillectomy, Tubal Ligation Additional Past Surgical History / Comment(s): "bypass from right leg to left" x3, AORTIC BILIARY ANEURYSM REPAIR, [place] filter, 4 hernia repairs, gastric bypass sleeve, 8 heart stents total, 3 leg stents, 1 stent in aorta. Past Anesthesia/Blood Transfusion Reactions: Postoperative Nausea & Vomiting (PONV) Additional Past Anesthesia/Blood Transfusion Reaction / Comment(s): Pt states she takes a long time to wake up after general anesthesia Date of Last Stent Placement:: july 19 2017 Past Psychological History: No Psychological Hx Reported Smoking Status: Former smoker Past Alcohol Use History: None Reported Past Drug Use History: None Reported - Past Family History Father Family Medical History: Unable to Obtain Additional Family Medical History / Comment(s): Pt does not know paternal father"s health hx. Mother Family Medical History: Coronary Artery Disease (CAD), Diabetes Mellitus Additional Family Medical History / Comment(s): Mother had CABG. She is alive and is 75yrs old. General Exam Limitations: no limitations General appearance: alert, in no apparent distress Head exam: Present: atraumatic, normocephalic, normal inspection Eye exam: Present: normal appearance, PERRL, EOMI. Absent: scleral icterus, conjunctival injection, periorbital swelling Respiratory exam: Present: normal lung sounds bilaterally. Absent: respiratory distress, wheezes, rales, rhonchi, stridor Cardiovascular Exam: Present: regular rate, normal rhythm, normal heart sounds. Absent: systolic murmur, diastolic murmur, rubs, gallop, clicks GI/Abdominal exam: Present: soft, tenderness (Mild suprapubic), normal bowel sounds. Absent: distended, guarding, rebound, rigid Extremities exam: Present: other (Right knee there is full range of motion neurovascular intact, pulses equal bilaterally lower extremities, pain with palpation of lateral medial posterior aspect, no obvious deformity no swelling no ecchymosis. This no laxity noted) Back exam: Absent: CVA tenderness (R), CVA tenderness (L) Neurological exam: Present: alert Course Vital Signs 04/23/20 10:55 Temperature 98.0 F Pulse Rate 74 Respiratory 18 Rate Blood Pressure 118/56 O2 Sat by Pulse 98 Oximetry Medical Decision Making - Medical Decision Making 60-year-old presented for flank pain. Patient CT shows evidence of cyst millimeter UVJ stone. Patient pain is controlled she does not want any further pain meds. Patient will be discharged with follow-up with urology. Patient also has a right knee sprain no significant abnormality on x-ray. Other than mild arthritis - Lab Data Result diagrams: 04/23/20 11:24 04/23/20 11:24 Lab Results 04/23/20 04/23/20 04/23/20 Range/Units 11:24 11:24 11:24 WBC 9.4 (3.8-10.6) k/uL RBC 4.97 (3.80-5.40) m/uL Hgb 14.2 (11.4-16.0) gm/dL Hct 42.2 (34.0-46.0) % MCV 84.9 (80.0-100.0) fL MCH 28.7 (25.0-35.0) pg MCHC 33.8 (31.0-37.0) g/dL RDW 14.0 (11.5-15.5) % Plt Count 307 (150-450) k/uL MPV 7.1 Neutrophils % 68 % Lymphocytes % 21 % Monocytes % 6 % Eosinophils % 3 % Basophils % 1 % Neutrophils # 6.4 (1.3-7.7) k/uL Lymphocytes # 2.0 (1.0-4.8) k/uL Monocytes # 0.5 (0-1.0) k/uL Eosinophils # 0.3 (0-0.7) k/uL Basophils # 0.1 (0-0.2) k/uL Sodium 139 (137-145) mmol/L Potassium 4.1 (3.5-5.1) mmol/L Chloride 107 (98-107) mmol/L Carbon Dioxide 25 (22-30) mmol/L Anion Gap 7 mmol/L BUN 18 H (7-17) mg/dL Creatinine 1.33 H (0.52-1.04) mg/dL Est GFR (CKD-EPI)AfAm 50 (>60 ml/min/1.73 sqM) Est GFR (CKD-EPI)NonAf 43 (>60 ml/min/1.73 sqM) Glucose 247 H (74-99) mg/dL Plasma Lactic Acid Jair (0.7-2.0) mmol/L Calcium 9.0 (8.4-10.2) mg/dL Total Bilirubin 1.6 H (0.2-1.3) mg/dL AST 15 (14-36) U/L ALT 14 (4-34) U/L Alkaline Phosphatase 135 H (38-126) U/L Total Protein 6.8 (6.3-8.2) g/dL Albumin 3.7 (3.5-5.0) g/dL Amylase 35 (30-110) U/L Lipase 137 (23-300) U/L Urine Color Yellow Urine Appearance Clear (Clear) Urine pH 5.0 (5.0-8.0) Ur Specific [place] 1.022 (1.001-1.035) Urine Protein Trace H (Negative) Urine Glucose (UA) 4+ H (Negative) Urine Ketones Trace H (Negative) Urine Blood Large H (Negative) Urine Nitrite Negative (Negative) Urine Bilirubin Negative (Negative) Urine Urobilinogen <2.0 (<2.0) mg/dL Ur Leukocyte Esterase Small H (Negative) Urine RBC 130 H (0-5) /hpf Urine WBC 24 H (0-5) /hpf Ur Squamous Epith Cells 1 (0-4) /hpf Urine Mucus Rare H (None) /hpf 04/23/20 Range/Units 11:24 WBC (3.8-10.6) k/uL RBC (3.80-5.40) m/uL Hgb (11.4-16.0) gm/dL Hct (34.0-46.0) % MCV (80.0-100.0) fL MCH (25.0-35.0) pg MCHC (31.0-37.0) g/dL RDW (11.5-15.5) % Plt Count (150-450) k/uL MPV Neutrophils % % Lymphocytes % % Monocytes % % Eosinophils % % Basophils % % Neutrophils # (1.3-7.7) k/uL Lymphocytes # (1.0-4.8) k/uL Monocytes # (0-1.0) k/uL Eosinophils # (0-0.7) k/uL Basophils # (0-0.2) k/uL Sodium (137-145) mmol/L Potassium (3.5-5.1) mmol/L Chloride (98-107) mmol/L Carbon Dioxide (22-30) mmol/L Anion Gap mmol/L BUN (7-17) mg/dL Creatinine (0.52-1.04) mg/dL Est GFR (CKD-EPI)AfAm (>60 ml/min/1.73 sqM) Est GFR (CKD-EPI)NonAf (>60 ml/min/1.73 sqM) Glucose (74-99) mg/dL Plasma Lactic Acid Jair 1.5 (0.7-2.0) mmol/L Calcium (8.4-10.2) mg/dL Total Bilirubin (0.2-1.3) mg/dL AST (14-36) U/L ALT (4-34) U/L Alkaline Phosphatase (38-126) U/L Total Protein (6.3-8.2) g/dL Albumin (3.5-5.0) g/dL Amylase (30-110) U/L Lipase (23-300) U/L Urine Color Urine Appearance (Clear) Urine pH (5.0-8.0) Ur Specific [place] (1.001-1.035) Urine Protein (Negative) Urine Glucose (UA) (Negative) Urine Ketones (Negative) Urine Blood (Negative) Urine Nitrite (Negative) Urine Bilirubin (Negative) Urine Urobilinogen (<2.0) mg/dL Ur Leukocyte Esterase (Negative) Urine RBC (0-5) /hpf Urine WBC (0-5) /hpf Ur Squamous Epith Cells (0-4) /hpf Urine Mucus (None) /hpf Disposition Clinical Impression: Ureteral calculus, left, Right knee sprain Disposition: HOME SELF-CARE Condition: Stable Instructions (If sedation given, give patient instructions): Kidney Stones (ED) Additional Instructions: Please return to the Emergency Department if symptoms worsen or any other concerns. Prescriptions: Tamsulosin [Flomax] 0.4 mg PO DAILY #7 cap Is patient prescribed a controlled substance at d/c from ED?: No Referrals: Bryan,Katrina, DO [Primary Care Provider] - 1-2 days Duane Jaquez MD [STAFF PHYSICIAN] - 1-2 days Time of Disposition: 14:09
[2020-04-23 12:34] LABS: Appearance,Urine Clear (Clear); Bilirubin,Urine Negative (Negative); Blood,Urine Large (Negative); Color,Urine Yellow; Glucose,Urine (UA) 4+ (Negative); Ketones,Urine Trace (Negative); Leukocyte Esterase,Urine Small (Negative); Mucus,Urine Rare /hpf; Nitrite,Urine Negative (Negative); Protein,Urine Trace (Negative); RBC,Urine 130 /hpf (0-5); Specific Gravity,Urine 1.022 (1.001-1.035); Squamous Epithelial Cell,Urine 1 /hpf (0-4); Urobilinogen,Urine <2.0 mg/dL (<2.0); WBC,Urine 24 /hpf (0-5)
--- NOTE | 2020-04-23 13:54 | CT ---
EXAMINATION TYPE: CT abdomen pelvis wo con DATE OF EXAM: 04/23/2020 COMPARISON: 02/10/2016 INDICATION: abd pain DLP: 2048 mGycm, Automated exposure control for dose reduction was used. CONTRAST: 0 mL of Isovue 300. Study performed without Oral Contrast TECHNIQUE: Axial images were obtained from above the diaphragm to the pubic rami in the axial plane a t 5 mm thick sections. Reconstructed images are reviewed on the computer in the coronal plane. FINDINGS: Limited CT sections are obtained the lung bases. The lung bases are clear. Coronary artery calcific ation is present. CT ABDOMEN: There is a curvilinear 1.3 x 5.4 cm collection in the anterior abdominal wall. This was p resent previously. Postsurgical changes are within the stomach. Liver: Normal Spleen: Normal Pancreas: Normal Adrenal glands: The adrenal glands are normal. Gallbladder: Normal tiny gallstone within the common bile duct is not excluded. Series 201 image 45. Kidneys: No masses are evident. There is moderate left hydronephrosis. Hydroureter extends into the d istal pelvis. There is a 0.6 cm obstructing distal left ureteral stone. This is above the ureterovesi araceli junction. No cysts are present. Aorta: Vascular calcification is within the aorta. Stent is within the aorta Inferior vena cava: [place] filter is within the inferior vena cava. CT PELVIS: There is a large anterior abdominal wall hernia. The contents containing multiple nondilat ed loops of small bowel and colon Loops of bowel within the abdomen and pelvis are normal. Study is without oral contrast limiting bowel evaluation. Appendix: Not identified. No suspicious dilated tubular structures or inflammatory changes are eviden t. Urinary bladder: Decompressed with limited evaluation Genitourinary structures: Uterus and ovaries are not identified. Osseous structures: No suspicious lytic or sclerotic lesions. IMPRESSIONS: 1. 0.6 cm obstructing distal left ureteral stone above the left ureterovesical junction. There is mo derate left hydronephrosis and left hydroureter. 2. Stable subcutaneous collection anterior epigastric region. 3. Large anterior abdominal wall hernia containing nonobstructed loops of small bowel and colon.
[2020-04-23 14:22] VITALS: BP 143/56; PULSE 84; TEMP 98.3
== END 2020-04-23 14:24 | disposition home or self-care (01) ==
LOC: EC 10:42
DX: S83.91XA Sprain of unspecified site of right knee, initial encounter (principal); N20.1 Calculus of ureter; M17.11 Unilateral primary osteoarthritis, right knee; I10 Essential (primary) hypertension; E07.9 Disorder of thyroid, unspecified; E11.9 Type 2 diabetes mellitus without complications; I25.10 Atherosclerotic heart disease of native coronary artery without angina pectoris; J44.9 Chronic obstructive pulmonary disease, unspecified; I25.2 Old myocardial infarction; Z79.899 Other long term (current) drug therapy; Z79.02 Long term (current) use of antithrombotics/antiplatelets; Z79.4 Long term (current) use of insulin; Z79.890 Hormone replacement therapy; Z88.1 Allergy status to other antibiotic agents; Z91.018 Allergy to other foods; Z88.0 Allergy status to penicillin; Z88.2 Allergy status to sulfonamides; Z91.048 Other nonmedicinal substance allergy status; Z88.8 Allergy status to other drugs, medicaments and biological substances; Z90.89 Acquired absence of other organs; Z98.84 Bariatric surgery status; Z98.51 Tubal ligation status; Z87.891 Personal history of nicotine dependence; Z87.442 Personal history of urinary calculi; W22.8XXA Striking against or struck by other objects, initial encounter
CPT/HCPCS: 36415; 74176; 80053; 81001; 82150; 83605; 83690; 85025; 87086; 96360; 99284

== ENCOUNTER → 2020-06-10 | Outpatient (CLI) | payer OTHER ==
--- NOTE | 2020-06-15 09:28 | P.ARTDOP ---
Arterial Doppler LOWER EXTREMITY ARTERIAL DOPPLER: DATE OF SERVICE: 06/10/2020 Reason for study: Status post aortoiliac stents. Doppler waveforms: Multiphasic throughout on the left. Atypical throughout on the right.. Pulse volume recording: []. Pressure gradients: Above the knee on the right. Mild gradient above the knee on the left.. Ankle-brachial indices: 0.47 on the right and 0.79 on the left. Toe brachial indices: 0.28 on the right, 0.54 on the left Impression: Moderate right femoral popliteal disease with suspected iliac component. Mild left fem-pop disease. Suggest vascular specialty evaluation..
== END | disposition home or self-care (01) ==
LOC: RADUSWWP 14:03
PROVIDERS: ATTEND Internal Medicine Cardiovascular Disease
DX: I73.89 Other specified peripheral vascular diseases (principal); I27.20 Pulmonary hypertension, unspecified
CPT/HCPCS: 93923

== ENCOUNTER 2020-09-01 19:44 | Emergency (ER) | payer OTHER ==
[2020-09-01 19:49] VITALS: BP 149/69; PULSE 102; RESP 20; TEMP 98.1
--- NOTE | 2020-09-01 20:54 | XR ---
EXAMINATION TYPE: XR wrist complete LT DATE OF EXAM: 09/01/2020 COMPARISON: NONE HISTORY: . Fall. TECHNIQUE: AP, oblique, lateral, and scaphoid views of the left wrist obtained FINDINGS: No acute fracture. No dislocation. Normal mineralization. No significant soft tissue swelli ng. Vascular calcifications. IMPRESSION: No acute fracture or dislocation.
--- NOTE | 2020-09-01 20:58 | XR ---
EXAMINATION TYPE: XR elbow complete LT DATE OF EXAM: 09/01/2020 COMPARISON: NONE HISTORY: Pain after fall last night. Limited range of motion. Unable to externally rotate. fall. TECHNIQUE: AP, oblique, and lateral views of the left elbow obtained. FINDINGS: There is abnormal elevation of the anterior and posterior fat pads. No displaced fracture i s seen. No dislocation. There is chronic degenerative change at the great normal osseous mineralizati on. IMPRESSION: Abnormal elevation of the anterior and posterior fat pads raise concern for occult elbow fracture, mo st frequently at the radial head or supracondylar region. If clinically indicated CT exam of the elbo w could be obtained for further evaluation.
--- NOTE | 2020-09-01 21:02 | XR ---
EXAMINATION TYPE: XR knee complete LT DATE OF EXAM: 09/01/2020 COMPARISON: 09/23/2009 HISTORY: Pain after fall. TECHNIQUE: AP, oblique, and lateral views of the left knee. FINDINGS: No acute fracture. No dislocation. Moderate to marked tricompartmental degenerative spurrin g. There is joint space narrowing of the medial compartment. Normal mineralization. No significant so ft tissue swelling. IMPRESSION: No acute fracture or dislocation.
[2020-09-01] MEDS ORDERED: traMADol 50 MG STARTER PACK 3 TAB BTL PO STA (22:13)
--- NOTE | 2020-09-01 22:13 | ED ---
Fall HPI - General Chief Complaint: Fall Stated Complaint: fall, L hand injury Time Seen by Provider: 09/01/20 21:17 Source: patient, RN notes reviewed, old records reviewed Mode of arrival: wheelchair - History of Present Illness Initial Comments: This is a 6-year-old female 24 hours after fall. Patient complaining of left wrist elbow and left shoulder pain as well as left knee pain. Patient states symptoms just have not improved throughout the day and she comes DF for evaluation. Fall with mechanical in nature. Did not hit her head or neck. Complaining of mainly elbow pain but also left-sided arm and leg pain MD Complaint: fall -: days(s) Fall From: standing When Fall Occurred: 24 hours P[employer] Fall Witnessed: yes, by family Place Fall Occurred: home Loss of Consciousness: none Prolonged Down Time?: no Symptoms Prior to Fall: none Location - Extremities: Left: Arm, Elbow, Forearm Severity: severe Severity scale (1-10): 5 Quality: burning Context: tripped/slipped Associated Symptoms: denies - Related Data Home Medications Medication Instructions Recorded Confirmed Albuterol Sulfate [Ventolin HFA] 2 puff INHALATION RT-Q6H PRN 04/28/14 04/23/20 lisinopriL [Zestril] 5 mg PO DAILY 04/28/14 04/23/20 metFORMIN HCL [Glucophage] 500 mg PO BID 04/28/14 04/23/20 Isosorbide Mononitrate ER [Imdur] 60 mg PO BID 10/14/15 04/23/20 Nitroglycerin Sl Tabs [Nitrostat] 0.4 mg SUBLINGUAL Q5M PRN 10/14/15 04/23/20 Ranolazine [Ranexa] 1,000 mg PO BID 10/14/15 04/23/20 cilostazoL [Pletal] 100 mg PO BID 10/14/15 04/23/20 lamoTRIgine [LaMICtal] 100 mg PO BID 10/14/15 04/23/20 traMADol HCL [Ultram] 50 mg PO Q4HR PRN 10/14/15 04/23/20 Levothyroxine Sodium [Synthroid] 175 mcg PO DAILY 10/05/17 04/23/20 Cyclobenzaprine [Flexeril] 5 mg PO BID PRN 04/23/20 04/23/20 Dulaglutide [Trulicity] 1.5 mg SQ GRIGSBY 04/23/20 04/23/20 Ibuprofen [Motrin Ib] 600 mg PO Q8H PRN 04/23/20 04/23/20 Insulin Glargine,Hum.rec.anlog 64 unit SQ HS 04/23/20 04/23/20 [Lantus Solostar] Insulin Glulisine [Apidra Solostar] 15 unit SQ AC-TID 04/23/20 04/23/20 Metoclopramide HCl [Reglan] 10 mg PO BID PRN 04/23/20 04/23/20 Metoprolol Tartrate [Lopressor] 50 mg PO BID 04/23/20 04/23/20 Venlafaxine HCl ER [Effexor Xr] 150 mg PO DAILY 04/23/20 04/23/20 Previous Rx's Medication Instructions Recorded Atorvastatin [Lipitor] 80 mg PO HS tab 10/07/17 Clopidogrel [Plavix] 75 mg PO DAILY #0 10/07/17 Tamsulosin [Flomax] 0.4 mg PO DAILY #7 cap 04/23/20 Allergies Allergy/AdvReac Type Severity Reaction Status Date / Time cephalexin monohydrate Allergy rash & Verified 09/01/20 19:54 [From Keflex] swelling doxycycline Allergy Rash/Hives Verified 09/01/20 19:54 orange Allergy Rash/Hives Verified 09/01/20 19:54 orange (food color) Allergy Rash/Hives Verified 09/01/20 19:54 orange flavor Allergy Rash/Hives Verified 09/01/20 19:54 orange juice [[place]] Allergy Rash/Hives Verified 09/01/20 19:54 Penicillins Allergy rash & Verified 09/01/20 19:54 swelling Sulfa (Sulfonamide Allergy rash & Verified 09/01/20 19:54 Antibiotics) swelling adhesive AdvReac blisters Verified 09/01/20 19:54 desvenlafaxine succinate AdvReac Altered Verified 09/01/20 19:54 [From Pristiq] Mental Status/aggression diazepam [From Valium] AdvReac Vomiting Verified 09/01/20 19:54 citris Allergy Rash/Hives Uncoded 09/01/20 19:54 Review of Systems ROS Statement: Those systems with pertinent positive or pertinent negative responses have been documented in the HPI. ROS Other: All systems not noted in ROS Statement are negative. Past Medical History Past Medical History: Asthma, Coronary Artery Disease (CAD), COPD, Diabetes Mellitus, Hyperlipidemia, Hypertension, Myocardial Infarction ([place]), Thyroid Disorder Additional Past Medical History / Comment(s): back pain Last Myocardial Infarction Date:: 2012 History of Any Multi-Drug Resistant Organisms: None Reported Past Surgical History: Appendectomy, Bariatric Surgery, Heart Catheterization With Stent, Tonsillectomy, Tubal Ligation Additional Past Surgical History / Comment(s): "bypass from right leg to left" x3, AORTIC BILIARY ANEURYSM REPAIR, Debo filter, 4 hernia repairs, gastric bypass sleeve, 8 heart stents total, 3 leg stents, 1 stent in aorta. Past Anesthesia/Blood Transfusion Reactions: Postoperative Nausea & Vomiting (PONV) Additional Past Anesthesia/Blood Transfusion Reaction / Comment(s): Pt states she takes a long time to wake up after general anesthesia Date of Last Stent Placement:: july 19 2017 Past Psychological History: No Psychological Hx Reported Smoking Status: Former smoker Past Alcohol Use History: None Reported Past Drug Use History: None Reported - Past Family History Father Family Medical History: Unable to Obtain Additional Family Medical History / Comment(s): Pt does not know paternal father"s health hx. Mother Family Medical History: Coronary Artery Disease (CAD), Diabetes Mellitus Additional Family Medical History / Comment(s): Mother had CABG. She is alive and is 75yrs old. General Exam Limitations: no limitations General appearance: alert, in no apparent distress Head exam: Present: atraumatic, normocephalic, normal inspection Eye exam: Present: normal appearance, PERRL, EOMI. Absent: scleral icterus, conjunctival injection, periorbital swelling ENT exam: Present: normal exam, mucous membranes moist Neck exam: Present: normal inspection. Absent: tenderness, meningismus, lymphadenopathy Respiratory exam: Present: normal lung sounds bilaterally. Absent: respiratory distress, wheezes, rales, rhonchi, stridor Cardiovascular Exam: Present: regular rate, normal rhythm, normal heart sounds. Absent: systolic murmur, diastolic murmur, rubs, gallop, clicks GI/Abdominal exam: Present: soft, normal bowel sounds. Absent: distended, tenderness, guarding, rebound, rigid Extremities exam: Present: normal inspection, full ROM, normal capillary refill. Absent: tenderness, pedal edema, joint swelling, calf tenderness Back exam: Present: normal inspection Neurological exam: Present: alert, oriented X3, CN II-XII intact Psychiatric exam: Present: normal affect, normal mood Skin exam: Present: warm, dry, intact, normal color. Absent: rash Course Vital Signs 09/01/20 19:46 Temperature 98.1 F Pulse Rate 102 H Respiratory 20 Rate Blood Pressure 149/69 O2 Sat by Pulse 98 Oximetry - Reevaluation(s) Reevaluation #1: Medical record is reviewed Patient symptoms are significantly improved here in the emergency department Patient family informed of results, questions answered Medical Decision Making - Medical Decision Making 60 female fall, patient of fall with a left elbow fracture. No other injury noted. Patient can be discharged home - Radiology Data Radiology results: report reviewed (X-ray knee elbow and wrist are negative for traumatic injury), image reviewed Disposition Clinical Impression: Fall, Left elbow fracture, Contusion of left wrist, Contusion of left knee Disposition: HOME SELF-CARE Condition: Good Instructions (If sedation given, give patient instructions): Elbow Fracture ( ED) Is patient prescribed a controlled substance at d/c from ED?: No Referrals: Katrina Adams DO [Primary Care Provider] - 1-2 days Lyndon Banks DO [Doctor of Osteopathic Medicine] - 1-2 days
== END 2020-09-01 22:34 | disposition home or self-care (01) ==
LOC: EC 19:44
DX: S42.402A Unspecified fracture of lower end of left humerus, initial encounter for closed fracture (principal); S60.212A Contusion of left wrist, initial encounter; S80.02XA Contusion of left knee, initial encounter; E11.9 Type 2 diabetes mellitus without complications; I25.10 Atherosclerotic heart disease of native coronary artery without angina pectoris; E78.5 Hyperlipidemia, unspecified; I10 Essential (primary) hypertension; J44.9 Chronic obstructive pulmonary disease, unspecified; I25.2 Old myocardial infarction; Z87.891 Personal history of nicotine dependence; W19.XXXA Unspecified fall, initial encounter
CPT/HCPCS: 99283

== ENCOUNTER → 2020-09-13 | Outpatient (CLI) | payer OTHER ==
--- NOTE | 2020-09-13 15:03 | CT ---
EXAMINATION TYPE: CT elbow LT wo con DATE OF EXAM: 09/13/2020 COMPARISON: Plain film radiographs 09/01/2020 HISTORY: Lt elbow pain CT DLP: 1000.[address] of the left elbow shoulder with reconstruction imaging. TECHNIQUE: Unenhanced CT of the left elbow was performed with bone and soft tissue window settings rosas bmitted in the axial coronal and sagittal planes. At a separate workstation [id number] TR imaging was obtai daniel. FINDINGS: Examination is limited by positioning the patient's arm and elbow. There is streak artifact coursing through the elbow further limiting evaluation. I cannot exclude a hairline nondisplaced fra cture. A displaced fracture is not identified with certainty at this time. Prominence of the anterior and posterior fat pads are redemonstrated. No intraosseous lesion. No soft tissue masses appreciated . Mildly advanced degenerative changes about the elbow joint. IMPRESSION: 1. Exam limitations as discussed above results in streak artifact coursing through the elbow and supr acondylar regions. Unfortunately I cannot exclude a hairline or nondisplaced fracture. Displaced frac ture is not identified with certainty at this time. Correlate clinically.
== END | disposition home or self-care (01) ==
LOC: RADCTMAIN 13:51
PROVIDERS: ATTEND Orthopaedic Surgery
DX: M25.522 Pain in left elbow (principal)